=== PATIENT | male | born 1965 | race Caucasian/White ===

== ENCOUNTER → 2016-09-18 | Outpatient (CLI) | payer MEDICAID ==
[~2016-09-18] MED LIST: FUROSEMIDE INJ/PF 40 MG/4 ML SDV ONE
== END ==
LOC: RAD 08:33
PROVIDERS: ATTEND Urology
DX: N13.5 Crossing vessel and stricture of ureter without hydronephrosis (principal)
CPT/HCPCS: 78708; A9562; J1940

== ENCOUNTER → 2017-03-05 | Outpatient (CLI) | payer MEDICAID ==
--- NOTE | 2017-03-05 14:02 | RADIOLOGY REPORT (SQ) ---
EXAM DESCRIPTION: NM RENAL WITH LASIX COMPLETED DATE/TIME: 03/05/2017 12:32 pm REASON FOR STUDY: CROSSING VESSEL AND STRICTURE OF URETER W/O HYDRONEPHROSIS N13.5 CROSSING VESSEL AND STRICTURE OF URETER W/O HYDRONEPHR COMPARISON: 09/18/2016. RADIONUCLIDE AND DOSE: 5.11 millicuries Tc-99m MAG 3 The route of agent administration: Intravenous ADDITIONAL DRUGS AND DOSES: Lasix 20 mg. TECHNIQUE: Following administration of the radionuclide, flow images of the kidneys were acquired fo llowed by sequential imaging for 30 minutes. Intravenous Lasix was given at the midpoint of the study . Time activity curves were generated. LIMITATIONS: None. FINDINGS: ACTIVITY LEFT KIDNEY: 48 %. ACTIVITY RIGHT KIDNEY: 52 %. There is prompt uptake of activity in the kidneys bilaterally simultaneous with passage of the aortic bolus. LEFT KIDNEY: There is normal progression of activity from the renal cortex into the collecting syste m. There is delayed excretion from the collecting system with blunted response to Lasix. RIGHT KIDNEY: There is normal excretion with progression of activity from the renal cortex into the collecting system and subsequently into the ureter. Time activity curves demonstrate normal excretor y pattern with no abnormal retention. No obstructive changes. IMPRESSION: NORMAL LASIX RENOGRAM OF THE RIGHT KIDNEY. AGAIN SEEN IS IMPAIRED DELAYED EXCRETION OF THE LEFT KIDNEY WITH BLUNTED RESPONSE TO LASIX. TECHNICAL DOCUMENTATION: JOB ID: [id number]- All Rights Reserved
== END ==
LOC: RAD 11:06
PROVIDERS: ATTEND Urology
DX: N13.5 Crossing vessel and stricture of ureter without hydronephrosis (principal)
CPT/HCPCS: 78708; A9562